=== PATIENT | male | born 1945 | race African-American/Black ===

== ENCOUNTER → 2017-01-01 | Outpatient (CLI) | payer SELFPAY ==
[~2017-01-01] MED LIST: ASPI325T2 PO; FURO-152 PO; HYDR-4133 PO; [UNRECOGNIZED DRUG - OTHER]; [UNRECOGNIZED DRUG - OTHER]
[2017-01-01 14:51] LABS: INR 1.1; PARTIAL THROMBOPLASTIN TIME 31.5 sec (24.0-34.0); PROTHROMBIN TIME 11.5 sec
== END | disposition home or self-care (01) ==
LOC: LAB 14:09
PROVIDERS: ATTEND Internal Medicine Nephrology
DX: I12.9 Hypertensive chronic kidney disease with stage 1 through stage 4 chronic kidney disease, or unspecified chronic kidney disease (principal); N18.4 Chronic kidney disease, stage 4 (severe)
CPT/HCPCS: 36415; 85610; 85730

== ENCOUNTER 2017-01-04 08:17 | Day surgery (SDC) | payer SELFPAY ==
[~2017-01-04] VITALS: Ht 165.1 cm; Wt 63.5 kg
[2017-01-04] VITALS (7 sets, daily range): BP systolic 136–155; BP diastolic 81–93
[2017-01-04] MEDS ORDERED: FENTANYL CITRATE/PF 50MCG/ML 2ML VIAL ONE (08:53)
[2017-01-04] MEDS ORDERED: FENTANYL CITRATE/PF 50MCG/ML 2ML VIAL IV ONE (09:30)
[2017-01-04] MEDS ORDERED: [UNRECOGNIZED DRUG - OTHER] (09:34)
[2017-01-04] MEDS ORDERED: [UNRECOGNIZED DRUG - OTHER] (09:34)
[2017-01-04] MEDS ORDERED: HYDR-4133 PO (09:34)
[2017-01-04] MEDS ORDERED: ASPI325T2 PO (09:34)
[2017-01-04] MEDS ORDERED: FURO-152 PO (09:34)
[2017-01-04] MEDS ORDERED: HYDROCODONE/ACETAMINOPHEN 5/325MG TABLET PO PRN (09:45)
[2017-01-04] MEDS ORDERED: LIDOCAINE HCL 1% 20ML VIAL (Pyxis) INJ ONE (12:31)
[2017-01-04] MEDS ORDERED: SODIUM BICARBONATE 4.2% 5 MEQ/10 ML DISP.SYRIN IV ONE (12:31)
[2017-01-04 12:58] LABS: HEMATOCRIT 26.4 % (42.0-52.0); HEMOGLOBIN 8.5 g/dL (14.0-18.0)
== END 2017-01-04 14:45 | disposition home or self-care (01) ==
LOC: RAD 08:17
PROVIDERS: ATTEND Internal Medicine Nephrology
DX: N18.4 Chronic kidney disease, stage 4 (severe) (principal); N13.30 Unspecified hydronephrosis; J90 Pleural effusion, not elsewhere classified
CPT/HCPCS: 36415; 50200; 76942; 85014; 85018; 88305; 88346; 88348; J3010; J3490